=== PATIENT | female | born 1960 | race Caucasian/White ===

== ENCOUNTER 2017-06-29 11:55 | Emergency (ER) | payer OTHER ==
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
[2017-06-29 14:22] VITALS: BP 153/69
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
== END 2017-06-29 14:22 | disposition home or self-care (01) ==
LOC: ED 11:55
DX: R04.0 Epistaxis (principal)
CPT/HCPCS: 70450; 70486; 99282